=== PATIENT | female | born 1980 | race African-American/Black ===

== ENCOUNTER 2025-07-05 18:18 | Inpatient (IN) | payer OTHER ==
[~2025-07-05] VITALS: Ht 170.2 cm; Wt 51.6 kg
[2025-07-05 22:20] LABS: COVID AG,FIA SOURCE NASAL SWAB
[2025-07-05 22:37] LABS: SARS-COV2 (COVID) ANTIGEN,FIA Negative (Negative)
[2025-07-06] VITALS (9 sets, daily range): BP systolic 106–154; BP diastolic 80–109; PULSE 88–116; RESP 16–20; TEMP 96.7–97.9; O2SAT 99–100
[2025-07-06 00:58] LABS: PH,URINE DRUG SCREEN 5.5 (5.0-8.0)
[2025-07-06 01:04] LABS: ALCOHOL, URINE DRUG SCREEN POSITIVE (NEGATIVE); AMPHET/METH SCREEN,URINE NEGATIVE (NEGATIVE); BARBITURATE SCREEN, URINE NEGATIVE (NEGATIVE); CANNABINOID SCREEN,URINE NEGATIVE (NEGATIVE); COCAINE SCREEN,URINE NEGATIVE (NEGATIVE); METHADONE SCREEN, URINE NEGATIVE (NEGATIVE)
[2025-07-06 02:09] LABS: CALCIUM, TOTAL 8.0 mg/dL (8.8-10.5); CREATININE 0.60 mg/dL (0.60-1.30); GLOMERULAR FILTR. RATE CALC > 60 mL/min (>60); GLUCOSE,RANDOM 141 mg/dL (70-110); SODIUM SERUM 142 mmol/L (136-145); UREA NITROGEN, BLOOD 8 mg/dL (7-18)
[2025-07-06 02:10] LABS: ALCOHOL, BLOOD (SERUM) 171.0 mg/dL (0-10)
[2025-07-06 02:11] LABS: PLATELET COUNT (AUTO) 325 K/uL (150-450); RED BLOOD CELL COUNT(AUTO) 3.11 MIL/uL (4.00-5.20); RED CELL DISTRIBUTION WIDTH 13.7 % (11.5-14.5); WHITE BLOOD COUNT (AUTO) 4.1 K/uL (4.5-11.0)
[2025-07-06 02:13] LABS: ASPARTATE AMINOTRANSFERASE 116.0 U/L (15-37); TOTAL PROTEIN, SERUM 6.8 g/dL (6.4-8.2)
[2025-07-06 02:14] LABS: RBC MORPHOLOGY COMMENT ABNORMAL RBC MORPH
[2025-07-06] MEDS ORDERED: GABA-1216 PO (09:18)
[2025-07-06] MEDS ORDERED: AMLO-258 PO (09:18)
[2025-07-06] MEDS ORDERED: DULO20CA23 PO (09:18)
[2025-07-06] MEDS: ZOLPIDEM TARTRATE 10 MG TABLET PO PRN (21:33)
[2025-07-07] VITALS (7 sets, daily range): BP systolic 110–123; BP diastolic 79–97; PULSE 86–116; RESP 16–18; TEMP 97.3–98; O2SAT 99–100
[2025-07-07] MEDS ORDERED: GuaiFENesin/D-METHORPHAN [SUGAR-FREE] 200-20MG/10 ML SYRUP UDCUP PO PRN (08:00)
[2025-07-07] MEDS ORDERED: ONDANSETRON 4 MG TABLET PO PRN (08:00)
[2025-07-07] MEDS ORDERED: ACETAMINOPHEN 325 MG TABLET PO PRN (08:00)
[2025-07-07] MEDS ORDERED: LOPERAMIDE HCL 2 MG CAPSULE PO PRN (08:00)
[2025-07-07] MEDS ORDERED: PETROLATUM,WHITE 28 GM JELLY TP PRN (08:00)
[2025-07-07] MEDS ORDERED: NICOTINE 14 MG/24 HOUR PATCH TD PRN (08:00)
[2025-07-07] MEDS ORDERED: MAG HYDROX/ALUMINUM HYD/SIMETH ES 30 ML SUSPENSION UDCUP PO PRN (08:00)
[2025-07-07] MEDS ORDERED: MAGNESIUM HYDROXIDE SUSPENSION 30 ML UDCUP PO PRN (08:00)
[2025-07-07] MEDS ORDERED: IBUPROFEN 400 MG TABLET PO PRN (08:00)
[2025-07-07] MEDS ORDERED: ALBUTEROL SULFATE HFA 90 MCG/PUFF 8 GM INHALER IH PRN (08:00)
[2025-07-07] MEDS ORDERED: DOCUSATE SODIUM 100 MG CAPSULE PO PRN (08:00)
[2025-07-07] MEDS: DULoxetine HCL 20 MG CAPSULE PO SCH (09:03)
[2025-07-07 10:04] LABS: PLATELET COUNT (AUTO) 350 K/uL (150-450); RED BLOOD CELL COUNT(AUTO) 3.65 MIL/uL (4.00-5.20); RED CELL DISTRIBUTION WIDTH 13.4 % (11.5-14.5); WHITE BLOOD COUNT (AUTO) 7.8 K/uL (4.5-11.0)
[2025-07-07 10:47] LABS: ASPARTATE AMINOTRANSFERASE 123 U/L (15-37); CALCIUM, TOTAL 8.6 mg/dL (8.8-10.5); CHOL/HDL RATIO 2.4 (3.9-5.7); CREATININE 0.54 mg/dL (0.60-1.30); GLOMERULAR FILTR. RATE CALC > 60 mL/min (>60); GLUCOSE,RANDOM 102 mg/dL (70-110); LDL CHOL (CALC.) 108 mg/dL (0-130); SODIUM SERUM 137 mmol/L (136-145); TOTAL PROTEIN, SERUM 7.7 g/dL (6.4-8.2); UREA NITROGEN, BLOOD 5 mg/dL (7-18)
[2025-07-07 11:44] LABS: RBC MORPHOLOGY COMMENT ABNORMAL RBC MORPH
[2025-07-08] MEDS: LEVOTHYROXINE SODIUM 50 MCG TABLET PO SCH (06:10)
[2025-07-08 08:13] VITALS: BP 107/84; PULSE 98; RESP 16; TEMP 97.9; O2SAT 100
[2025-07-08 10:23] LABS: PLATELET COUNT (AUTO) 311 K/uL (150-450); RED BLOOD CELL COUNT(AUTO) 3.46 MIL/uL (4.00-5.20); RED CELL DISTRIBUTION WIDTH 13.4 % (11.5-14.5); WHITE BLOOD COUNT (AUTO) 6.4 K/uL (4.5-11.0)
[2025-07-08] MEDS ORDERED: LEVO50CA5 PO (12:07)
[2025-07-08 14:17] LABS: ASPARTATE AMINOTRANSFERASE 100 U/L (15-37); CALCIUM, TOTAL 8.5 mg/dL (8.8-10.5); CHOL/HDL RATIO 2.3 (3.9-5.7); CREATININE 0.62 mg/dL (0.60-1.30); GLOMERULAR FILTR. RATE CALC > 60 mL/min (>60); GLUCOSE,RANDOM 72 mg/dL (70-110); LDL CHOL (CALC.) 97 mg/dL (0-130); SODIUM SERUM 134 mmol/L (136-145); TOTAL PROTEIN, SERUM 7.4 g/dL (6.4-8.2); UREA NITROGEN, BLOOD 7 mg/dL (7-18)
[2025-07-08 14:21] LABS: RBC MORPHOLOGY COMMENT ABNORMAL RBC MORPH
== END 2025-07-08 17:25 | disposition home or self-care (01) | DRG 885 ==
LOC: EMS 18:18 → B3A 07-06 11:55
PROVIDERS: ADMIT Psychiatry & Neurology Child & Adolescent Psychiatry; ATTEND Psychiatry & Neurology Child & Adolescent Psychiatry
PROC: GZ56ZZZ Individual Psychotherapy, Supportive (ICD-10-PCS; 2025-07-07)
PROC: GZ58ZZZ Individual Psychotherapy, Cognitive-Behavioral (ICD-10-PCS; 2025-07-07)
PROC: GZ52ZZZ Individual Psychotherapy, Cognitive (ICD-10-PCS; principal; 2025-07-08)
DX: F33.1 Major depressive disorder, recurrent, moderate (principal); E44.0 Moderate protein-calorie malnutrition; Z68.1 Body mass index [BMI] 19.9 or less, adult; R45.851 Suicidal ideations; Z20.822 Contact with and (suspected) exposure to COVID-19; I10 Essential (primary) hypertension; E87.6 Hypokalemia; R73.9 Hyperglycemia, unspecified; F10.129 Alcohol abuse with intoxication, unspecified; Y90.6 Blood alcohol level of 120-199 mg/100 ml
CPT/HCPCS: 80048; 80053; 80061; 80076; 80307; 83036; 84439; 84443; 84703; 85025; 99285; G0480